=== PATIENT | female | born 1960 | race Caucasian/White ===

== ENCOUNTER → 2021-09-05 | Outpatient (CLI) | payer OTHER ==
--- NOTE | 2021-09-05 17:47 | RAD ---
Exam: XR RT WRIST [id number] History: Removal of splint Comparison: 08/30/2021 Findings: Decreased osseous mineralization. Redemonstrated mildly comminuted intra-articular fracture of the di stal radius. Mild widening at the scapholunate interval. Degenerative changes of the wrist and first MCP joints. Mild diffuse soft tissue swelling. Impression: 1. Redemonstrated, comminuted intra-articular fracture of the distal radius. 2. Subtle widening of the scapholunate interval may represent sequela of scapholunate injury. Electronically signed by: Cliff Beatty MD (09/05/2021 5:44 PM) [id number]
== END ==
LOC: RAD 14:01
PROVIDERS: ATTEND Physician Assistant
DX: S52.571D Other intraarticular fracture of lower end of right radius, subsequent encounter for closed fracture with routine healing (principal); M19.031 Primary osteoarthritis, right wrist; M79.89 Other specified soft tissue disorders; M81.8 Other osteoporosis without current pathological fracture; X58.XXXD Exposure to other specified factors, subsequent encounter
CPT/HCPCS: 73110

== ENCOUNTER → 2021-10-03 | Outpatient (CLI) | payer OTHER ==
--- NOTE | 2021-10-03 15:12 | RAD ---
AP, lateral, and oblique views of the right wrist were obtained. Indication: Reason: follow up fracture / Spl. Instructions: / History: Comparison: 09/05/2021. Findings: Stable fracture of the distal radius. There is increasing sclerosis consistent with bone healing. Min imal callus is identified. There appears to be more pronounced widening of the scapholunate interval suggestive of possible scapholunate disassociation. Electronically signed by: Abdirizak Soto MD (10/03/2021 3:09 PM) [facility]
== END ==
LOC: RAD 13:09
PROVIDERS: ATTEND Physician Assistant
DX: S52.501A Unspecified fracture of the lower end of right radius, initial encounter for closed fracture (principal); L84 Corns and callosities; X58.XXXA Exposure to other specified factors, initial encounter; Y93.89 Activity, other specified; Y92.89 Other specified places as the place of occurrence of the external cause; Y99.8 Other external cause status
CPT/HCPCS: 73110